=== PATIENT | female | born 1950 | race Hispanic/Latino ===

== ENCOUNTER → 2018-07-16 | Outpatient (CLI) | payer BC ==
--- NOTE | 2018-07-16 13:04 | Diagnostic Imaging Report ---
Exam: Lumbar spine complete History: Lumbar radiculopathy Comparison: None. Findings: There are 5 nonrib-bearing lumbar-type vertebral bodies. No acute, displaced fracture or subluxation. No pars interarticularis defects are identified on the oblique radiographs. Multilevel disc space narrowing, endplate sclerosis, and marginal osteophytosis affecting L1-2 through L5-S1, with the most severe changes at L5-S1. Bilateral facet arthropathy at L4-5 and L5-S1 is also noted. Sacroiliac joints are intact. The inferior sacral body and coccyx are obscured by rectal gas and stool; however, the sacral foramina appear intact superiorly. Scattered right abdominal and right upper quadrant surgical clips. 5 mm calculus projects over the lower pole of the left renal shadow. Impression: No acute osseous abnormalities. Multilevel degenerative disc disease and degenerative facet arthropathy worst at L5-S1 as above. Incidental note of a suspected 5 mm left renal calculus. Signed by: Dr. Mitchell Lai M.D. on 07/16/2018 1:00 PM
== END ==
LOC: RAD 11:53
DX: M54.16 Radiculopathy, lumbar region (principal)
CPT/HCPCS: 72110